=== PATIENT | female | born 1995 | race Caucasian/White ===

== ENCOUNTER 2016-04-14 14:52 | Emergency (ER) | payer BC ==
[2016-04-14 17:45] VITALS: BP 118/60
--- NOTE | 2016-04-14 18:33 | UC ---
HPI Febrile Illness - HPI Summary HPI Summary: body aches, shaking chills, severe headache, mild cough and ST, congestion for 2 -3 days. Many contacts ill with flu. Able to drink and eat today, but diminished appetite - History of Current Complaint Chief Complaint: UCRespiratory Time Seen by Provider: 04/14/16 18:18 Hx Obtained From: Patient Onset/Duration: Started Days Ago - 2 Timing: Constant Initial Severity: Mild Current Severity: Mild Aggravating Factors: Nothing Alleviating Factors: OTC Medicine Associated Signs and Symptoms: Chills, Cough, Headache, Myalgia, Sore Throat - mild, Weakness - Risk Factors Pseudomonas Risk Factors: Negative Serious Bacterial Infection Risk Factors: Negative - Allergy/Home Medications Allergies/Adverse Reactions: Allergies Allergy/AdvReac Type Severity Reaction Status Date / Time No Known Allergies Allergy Verified 04/14/16 17:38 Home Medications: Home Medications Ibuprofen TAB* [Advil TAB*] 600 mg PO Q6H PRN 04/14/16 [History Confirmed ] Levonorgestrel-Ethinyl Estradi [Quartette] 1 tab PO DAILY 04/14/16 [History Confirmed 04/14/16] PMH/Surg Hx/FS Hx/Imm Hx Previously Healthy: Yes - Immunization History Date of Influenza Vaccine: none this year Infectious Disease History: No Infectious Disease History: Reports: Traveled Outside the [place] in Last 30 Days - [facility] - Family History Known Family History: Negative: Respiratory Disease, Seizure Disorder - Social History Occupation: Student Lives: Alone - dorm Alcohol Use: Occasionally Substance Use Type: Reports: None Smoking Status (MU): Never Smoked Tobacco Review of Systems Constitutional: Fever, Chills, Fatigue Skin: Negative Eyes: Negative ENT: Sore Throat, Nasal Discharge Respiratory: Cough Cardiovascular: Negative Gastrointestinal: Negative Genitourinary: Negative Motor: Negative Neurovascular: Negative Musculoskeletal: Myalgia Neurological: Headache Psychological: Negative All Other Systems Reviewed And Are Negative: Yes Physical Exam Triage Information Reviewed: Yes Appearance: Well-Appearing, No Pain Distress, Well-Nourished Vital Signs: Initial Vital Signs Temp 99.4 F 04/14/16 17:39 Pulse 109 04/14/16 17:39 Resp 20 04/14/16 17:39 BP 118/60 04/14/16 17:39 Pulse Ox 100 04/14/16 17:39 Vital Signs Reviewed: Yes Eye Exam: Normal Eyes: Positive: Conjunctiva Clear ENT: Positive: Hearing grossly normal, Pharyngeal erythema, Nasal congestion, TMs normal. Negative: Tonsillar swelling, Tonsillar exudate, Trismus, Muffled/ hoarse voice Neck exam: Normal Neck: Positive: Supple Respiratory Exam: Normal Respiratory: Positive: Lungs clear, Normal breath sounds, No respiratory distress, No accessory muscle use Cardiovascular Exam: Normal Musculoskeletal Exam: Normal Neurological Exam: Normal Psychological Exam: Normal Skin Exam: Normal Course/Dx - Febrile Illness Differential Diagnoses: Viremia - Diagnoses Clinic Provider Diagnoses: influenza Discharge - Discharge Plan Condition: Stable Disposition: HOME Prescriptions: Benzonatate CAP* [Tessalon CAP*] 100 mg PO TID PRN #20 cap PRN Reason: Cough Tramadol HCl [Ultram] 1 - 2 tab PO Q6HR PRN #14 tab MDD 6 tab PRN Reason: headache, body aches Patient Education Materials: Influenza (ED) Forms: *School Release Referrals: No Primary Care Phys,NOPCP [Primary Care Provider] -
== END 2016-04-14 18:34 | disposition home or self-care (01) ==
LOC: UCCORT 14:52
DX: J11.1 Influenza due to unidentified influenza virus with other respiratory manifestations (principal)
CPT/HCPCS: 99202; G0463

== ENCOUNTER 2016-06-11 08:26 | Emergency (ER) | payer BC ==
[2016-06-11 08:42] VITALS: BP 131/61
--- NOTE | 2016-06-11 08:49 | UC ---
Respiratory Complaint HPI - HPI Summary HPI Summary: The patient comes in today for: 1. Cough, rhinitis, nausea, hot feeling: Onset: One week. Palliative/provocative: Nothing makes her symptoms better or worse. Quality: dry, raspy. Region: Lungs Severity: Mild Time: Cough lasts a few seconds. Associated symptoms: Previous disease: She had asthma when she was younger. Fevers: None. Rhinitis (clear) present. Chest pain: None. Dyspnea: "A little bit, but not too noticable." Wheezing: None. * - History of Current Complaint Chief Complaint: UCRespiratory Stated Complaint: COUGH CONGESTION NAUSEA Time Seen by Provider: 06/11/16 08:44 Hx Obtained From: Patient Hx Last Menstrual Period: 05/05/16 - Allergies/Home Medications Allergies/Adverse Reactions: Allergies Allergy/AdvReac Type Severity Reaction Status Date / Time No Known Allergies Allergy Verified 06/11/16 08:42 PMH/Surg Hx/FS Hx/Imm Hx Previously Healthy: No - Family planning/BCP Endocrine History Of: Denies: Diabetes, Thyroid Disease, Hyperthyroidism, Hypothyroidism, Dyslipidemia Cardiovascular History Of: Denies: Cardiac Disorders, Hypertension, Pacemaker/ICD, Myocardial Infarction , Congestive Heart Failure, Atrial Fibrillation, Deep Vein Thrombosis, Bleeding Disorders Respiratory History Of: Reports: Asthma - As a child. Denies: COPD, Bronchitis, Pneumonia, Pulmonary Embolism GI/ History Of: Denies: Gastroesophageal Reflux, Ulcer, Gastrointestinal Bleed, Gall Bladder Disease, Kidney Stones, Diverticulitis, Renal Disease, Urosepsis Neurological History Of: Denies: TIA, CVA, Dementia, Seizures, Migraine Psychological History Of: Reports: Anxiety - No medications for this. Denies: Depression, Bipolar Disorder, Schizophrenia, Post Traumatic Stress Disorder Cancer History Of: Denies: Lung Cancer, Colorectal Cancer, Breast Cancer, Prostate Cancer, Cervical Cancer Other History Of: Negative For: HIV, Hepatitis B, Hepatitis C, Anticoagulant Therapy - Surgical History Surgical History: None - Family History Known Family History: Negative: Cardiac Disease, Hypertension, Respiratory Disease, Seizure Disorder - Social History Occupation: Employed Part-time, Student Alcohol Use: Occasionally Substance Use Type: None Smoking Status (MU): Never Smoked Tobacco Review of Systems Constitutional: Negative Skin: Negative Eyes: Negative ENT: Nasal Discharge Cardiovascular: Negative Gastrointestinal: Negative Genitourinary: Negative All Other Systems Reviewed And Are Negative: Yes Physical Exam Triage Information Reviewed: Yes Appearance: Well-Appearing, No Pain Distress, Well-Nourished Vital Signs: Initial Vital Signs Temp 100 F 06/11/16 08:32 Pulse 86 06/11/16 08:32 Resp 18 06/11/16 08:32 BP 131/61 06/11/16 08:32 Pulse Ox 98 06/11/16 08:32 Vital Signs Reviewed: Yes Eyes: Positive: Conjunctiva Clear. Negative: Discharge ENT: Positive: Hearing grossly normal, Other: - Sinuses: Non-tender.. Negative : Pharyngeal erythema, Nasal congestion, Nasal drainage, TM bulging, TM dull, TM red, Tonsillar swelling, Tonsillar exudate Dental: Negative: Gross Decay/Caries @, Dental Fracture @ Neck: Positive: Supple, Nontender, No Lymphadenopathy. Negative: Nuchal Rigidity Respiratory: Positive: Lungs clear, No respiratory distress, No accessory muscle use. Negative: Crackles, Wheezing Cardiovascular: Positive: RRR, No Murmur Abdomen Description: Positive: Nontender, No Organomegaly, Soft. Negative: Distended, Guarding Musculoskeletal: Positive: Strength Intact, ROM Intact Neurological: Positive: Alert, Muscle Tone Normal Psychological: Positive: Age Appropriate Behavior, Consolable Skin: Negative: rashes, breakdown UC Diagnostic Evaluation - Laboratory O2 Sat by Pulse Oximetry: 98 Respiratory Course/Dx - Course Course Of Treatment: Patient was told that she appears to have a viral condition leading to her cough, and nausea. She agreed to the prescribed medications. - Differential Dx/Diagnosis Provider Diagnoses: Upper respiratory infection. Viral syndrome. Discharge - Discharge Plan Condition: Stable Disposition: HOME Patient Education Materials: Viral Syndrome (ED), Upper Respiratory Infection ( ED) Referrals: No Primary Care Phys,NOPCP [Primary Care Provider] - 1 Week (Please see your primary care provider in about a week. If you don't have a primary care provider, please reference the included sheet of local provider. If you get worse, please be seen sooner.)
== END 2016-06-11 09:07 | disposition home or self-care (01) ==
LOC: UCCORT 08:26
DX: J06.9 Acute upper respiratory infection, unspecified (principal); B34.9 Viral infection, unspecified
CPT/HCPCS: 99212; G0463

== ENCOUNTER 2017-02-17 11:48 | Emergency (ER) | payer BC ==
[2017-02-17] MEDS ORDERED: LORazepam TAB(*) 1 MG PO ONE (14:03)
[2017-02-17] MEDS ORDERED: NS 0.9% 1000 ML* 1,000 ML IV ONE (14:04)
--- NOTE | 2017-02-17 14:20 | UC ---
UC General HPI - HPI Summary HPI Summary: Pleasant 21 yo female presents c/o sore throat since yesterday. Started suddenly yesterday morning. + feeling tired, shaky, hurts to drink water. Able to breathe ok. No rash. + nausea (attributes to shaky), no vomit. No b/b issues. Last period normal timing. No known sick contacts, but is a student at college. Reports hx of mononucleosis "twice," most recently 3 years ago. - History of Current Complaint Chief Complaint: UCRespiratory Stated Complaint: ST Time Seen by Provider: 02/17/17 13:45 Hx Obtained From: Patient Hx Last Menstrual Period: one month - Allergy/Home Medications Allergies/Adverse Reactions: Allergies Allergy/AdvReac Type Severity Reaction Status Date / Time No Known Allergies Allergy Verified 02/17/17 13:37 Home Medications: Home Medications Fluoxetine HCl 60 mg PO QPM 02/17/17 [History Confirmed 02/17/17] Ibuprofen TAB* [Motrin TAB* 400 MG] 400 mg PO DAILY PRN 02/17/17 [History Confirmed 02/17/17] PMH/Surg Hx/FS Hx/Imm Hx Previously Healthy: Yes Other History Of: Negative For: HIV, Hepatitis B, Hepatitis C, Anticoagulant Therapy - Surgical History Surgical History: None - Family History Known Family History: Negative: Cardiac Disease, Hypertension, Respiratory Disease, Seizure Disorder - Social History Alcohol Use: Occasionally Substance Use Type: None Smoking Status (MU): Never Smoked Tobacco Review of Systems Constitutional: Fever, Fatigue Skin: Negative Eyes: Negative ENT: Sore Throat Respiratory: Negative Cardiovascular: Other - "shaky" Gastrointestinal: Other - see hpi Genitourinary: Negative Motor: Negative Neurovascular: Negative Musculoskeletal: Negative Neurological: Headache Psychological: Negative - anxiety appropriate Is Patient Immunocompromised?: No All Other Systems Reviewed And Are Negative: Yes Physical Exam Triage Information Reviewed: Yes Appearance: Well-Nourished - looks tired, pale. Shaky. Not diaphoretic. Conversing easily and appropriately in full sentances. Non-toxic. Vital Signs: Initial Vital Signs Temp 99.1 F 02/17/17 13:30 Pulse 85 02/17/17 13:30 Resp 24 02/17/17 13:30 BP 121/62 02/17/17 13:30 Vital Signs Reviewed: Yes Eye Exam: Normal ENT: Positive: Pharyngeal erythema - Post pharynx + redness, swelling. No sores appreciated. Uvula midline, no obstruction. Neck supple, no meningismus. Adenopathy not appreciated to exam (although pt does c/o swollen glands), Nasal congestion, TM dull - R TM dull, rtx'd. L TM ok., Tonsillar swelling, Other - mucus membranes (lips) dry Neck exam: Normal Respiratory Exam: Normal Respiratory: Positive: Chest non-tender, Lungs clear, Normal breath sounds, No respiratory distress Cardiovascular Exam: Normal Cardiovascular: Positive: RRR, No Murmur, Pulses Normal, Brisk Capillary Refill Abdominal Exam: Normal Abdomen Description: Positive: Nontender, No Organomegaly Musculoskeletal Exam: Normal Neurological Exam: Normal - nonfocal Psychological Exam: Normal - conversing easily and appropriately. a little anxious. Skin Exam: Normal Course/Dx - Course Course Of Treatment: RST noted, negative. D/w pt. Will check blood work. Further hx - a couple weeks ago, she took a short course of amoxicillin d/t ear infection. Did have mild sore throat then, not tested for strep at that time. Clinically volume depleted. IV NS 1 liter. Pt denies hx addiction. Ordered 1mg po ativan here (she will get a ride home from friend). F/u PCP upon return home. Consider start augmentin 2/2 pharyngitis. Questions as posed answered to the best of my ability. 14:30 - s/o Dr. Palencia. Per RN, temp 101. Will order acetaminophen. IV currently being started. Will check influenza nasal swab. - Differential Dx - Multi-Symptom Provider Diagnoses: Acute pharyngitis. Volume depletion Discharge - Discharge Plan Condition: Stable Disposition: HOME Prescriptions: Amoxicillin/Clavulanate TAB* [Augmentin TAB 875*] 875 mg PO BID #14 tab Fluconazole [Diflucan 150 MG (NF)] 150 mg PO DAILY #2 tab Patient Education Materials: Dehydration (ED), Pharyngitis (ED) Referrals: No Primary Care Phys,NOPCP [Primary Care Provider] - Additional Instructions: Follow up with your primary care physician in your home town, upon your return home, in the next 1-2 weeks. Seek medical attention for worse or new problems. Use back up method for control until completion of current cycle including menstrual period. Blood tests today, see attached. Drink plenty of fluids as possible. Rapid strep test today negative.
[2017-02-17] MEDS ORDERED: Acetaminophen TAB* 325 MG PO ONE (14:30)
[2017-02-17 15:37] VITALS: BP 123/55
[2017-02-17 18:37] LABS: EBV Response YES
[2017-02-17 18:51] LABS: Hematocrit 35 % (35-47); Hemoglobin 11.9 g/dl (12.0-16.0); Mean Corpuscular HGB Conc 34 g/dl (31-36); Mean Corpuscular Hemoglobin 29 pg (27-31); Mean Corpuscular Volume 87 fL (80-97); Mean Platelet Volume 9 um3 (7.4-10.4); Red Blood Count 4.05 10^6/ul (4.0-5.4); Red Cell Distribution Width 12 % (10.5-15); White Blood Count 14.6 10^3/ul (3.5-10.8)
[2017-02-17 19:12] LABS: Manual Entry Verification MER0007; Mono Internal Control QC Line Present
[2017-02-17 19:23] LABS: Albumin 4.2 g/dL (3.2-5.2); C Reactive Protein 55.89 mg/L (< 5.00); Calcium 9.2 mg/dL (8.6-10.3); EGFR African American 125.4 (>60); EGFR Non-African American 97.5 (>60); Globulin 2.8 g/dL (2-4); Total Bilirubin 0.6 mg/dL (0.2-1.0)
[2017-02-19 13:07] LABS: EBV Capsid Ag IgG Ab Positive (Negative); EBV Capsid Ag IgM Ab Negative (Negative)
--- NOTE | 2017-02-19 16:52 | UC ---
Progress - Progress Note Progress Note: Reviewed lab work and chart. High white count and elevated crp, negative monospot. Was given a prescription for augmentin. Labs are consistent with bacterial infection; ensure that she has started use of the antibiotic which she was given.
== END 2017-02-17 15:45 | disposition home or self-care (01) ==
LOC: UCCORT 11:48
DX: J02.9 Acute pharyngitis, unspecified (principal); E86.9 Volume depletion, unspecified
CPT/HCPCS: 36415; 80053; 85025; 86140; 86308; 86664; 86665; 87502; 87651; 96360; 99212; A9270-GY; G0463